=== PATIENT | male | born 1995 | race Two or more races ===

== ENCOUNTER 2017-04-09 11:36 | Emergency (ER) | payer OTHER ==
[~2017-04-09] VITALS: Ht 170.2 cm; Wt 63.0 kg
[2017-04-09 11:51] VITALS: BP 161/101
== END 2017-04-09 12:45 | disposition home or self-care (01) ==
LOC: ED 12:40
DX: K02.9 Dental caries, unspecified (principal)
CPT/HCPCS: 99283